=== PATIENT | female | born 1950 | race Caucasian/White ===

== ENCOUNTER → 2020-03-28 08:00 | Outpatient (CLI) | payer OTHER | END | disposition home or self-care (01) | LOC: LAB 08:00 → ADM 12:45 → AMB-ENDOS 04-04 12:45 → EDSTATUS 04-04 12:45 | PROVIDERS: ATTEND Colon & Rectal Surgery | DX: U07.1 COVID-19 (principal); K63.5 Polyp of colon ==

== ENCOUNTER 2020-07-04 07:50 | Day surgery (SDC) | payer OTHER | END 2020-07-04 12:30 | disposition home or self-care (01) | LOC: AMB-ENDOS 07:50 | PROVIDERS: ATTEND Colon & Rectal Surgery | DX: D12.2 Benign neoplasm of ascending colon (principal); Z20.828 Contact with and (suspected) exposure to other viral communicable diseases ==